=== PATIENT | female | born 1990 | race Caucasian/White ===

== ENCOUNTER 2017-02-22 15:42 | Emergency (ER) | payer OTHER ==
[2017-02-22] MEDS: FLUORESCEIN OPHTH 1 MG STRIP OS (18:30)
[2017-02-22] MEDS: TETRACAINE 0.5% OPHTH SOLN 4ML OS (18:30)
[2017-02-22] MEDS: ERYTHROMYCIN OPHTH OINT OS (19:15)
[2017-02-22] MEDS: IBUPROFEN 600 MG TAB PO (19:15)
== END 2017-02-22 19:26 | disposition home or self-care (01) ==
LOC: M ED 15:42
DX: S05.02XA Injury of conjunctiva and corneal abrasion without foreign body, left eye, initial encounter (principal); W51.XXXA Accidental striking against or bumped into by another person, initial encounter; Y92.009 Unspecified place in unspecified non-institutional (private) residence as the place of occurrence of the external cause
CPT/HCPCS: 99283